=== PATIENT | female | born 1960 | race African-American/Black ===

== ENCOUNTER 2025-03-30 21:02 | Emergency (ER) | payer MEDICAID ==
[~2025-03-30] VITALS: Ht 170.2 cm; Wt 74.0 kg
[2025-03-30 21:11] VITALS: TEMP 36.8; O2SAT 98
[2025-03-30] MEDS: KETOROLAC 30MG/ML VIAL IM ONE (21:45)
[2025-03-30] MEDS ORDERED: METH4TAB95 MT (22:11)
[2025-03-30] MEDS ORDERED: LIDO-53 TP (22:11)
[2025-03-30] MEDS: LIDOCAINE 5% PATCH TOP SCH (23:15)
[2025-03-30 23:16] VITALS: BP 129/88; PULSE 68; RESP 18; O2SAT 100
== END 2025-03-30 23:17 | disposition home or self-care (01) ==
LOC: ER 21:15
DX: M54.2 Cervicalgia (principal); I10 Essential (primary) hypertension; Z85.3 Personal history of malignant neoplasm of breast
CPT/HCPCS: 99283; 96372; J1885